=== PATIENT | male | born 1960 | race Caucasian/White ===

== ENCOUNTER 2025-07-21 14:13 | Outpatient (CLI) | payer MEDICARE, OTHER | END 2025-07-21 14:14 | disposition home or self-care (01) | LOC: CSHULT 14:13 | PROVIDERS: ATTEND Internal Medicine Cardiovascular Disease | DX: I20.9 Angina pectoris, unspecified (principal); I34.0 Nonrheumatic mitral (valve) insufficiency; I77.810 Thoracic aortic ectasia | CPT/HCPCS: 93306 ==